=== PATIENT | female | born 1975 | race African-American/Black ===

== ENCOUNTER 2022-11-03 12:02 | Outpatient (CLI) | payer SELFPAY ==
[2022-11-03 14:24] LABS: Kit Draw Collected
== END 2022-11-03 12:03 | disposition home or self-care (01) ==
DX: M04.9 Autoinflammatory syndrome, unspecified (principal); E06.3 Autoimmune thyroiditis; R53.83 Other fatigue; A04.9 Bacterial intestinal infection, unspecified
CPT/HCPCS: 36415